=== PATIENT | male | born 1960 | race Caucasian/White ===

== ENCOUNTER 2020-11-23 23:41 | Inpatient (IN) | payer OTHER ==
[~2020-11-23] VITALS: Ht 190.5 cm; Wt 127.9 kg
--- NOTE | ~2020-11-23 | CON ---
[address] [address] CONSULTATION Name: FRANNY FORD Room: [place] [address] ADM IN M.R.#: [id number] Admission: 11/24/20 Attend Phys: Pedro Luis Christianson MD Discharge: Date of : 56 Report #: [id number] THIS REPORT FOR: cc: FAM - No family physician/PCP FAM - No family physician/PCP ~ Tashi Caba MD [facility] CARDIOLOGY CONSULTATION HISTORY OF PRESENT ILLNESS: I was asked by Dr. Christianson to see this 60-year-old white male in Cardiology consultation for evaluation and treatment of congestive heart failure. This man has a fairly long history of heart failure, he is not sure how long. He is not a particularly good historian. He does have insulin-dependent diabetes mellitus. His EKG does show probable old anterior infarct with right bundle-branch block and left axis deviation, left anterior fascicular block that is bifascicular block. He came in with increasing swelling of his legs and shortness of breath going on for a couple of weeks. I believe he is noncompliant with his medications. He normally follows at [facility], but he says he has moved on from [facility]. He was seen in the hospital downtown, but saw physicians at [facility] for followup. This man does have mild chronic renal failure. His creatinine today was 2.5. He does have cellulitis of both lower extremities as well. HOME MEDICATIONS: Include albuterol 2 puffs q. 4-6 hours p.r.n., carvedilol 6.25 mg b.i.d., furosemide 80 mg b.i.d., docusate 800 mg b.i.d., hydralazine 25 mg t.i.d., isosorbide mononitrate or Imdur 30 mg daily, tamsulosin 0.4 mg daily, melatonin 3 mg extended release at bedtime, and Lantus insulin 20 units daily at bedtime. He has not been having any chest pains. He did have an ultrasound of his legs, which did not show DVT, but he does have evidence of cellulitis with redness of both legs. PAST MEDICAL HISTORY: As described above. ALLERGIES: ALLERGIC TO DIAZEPAM AND CODEINE. REVIEW OF SYSTEMS: Unremarkable except as described above. His review of systems is negative for some 35 different complaints in 14 different system categories. Please see review of system form for details and negatives in review of systems. SOCIAL HISTORY: He is not . He does have a history of smoking. He does have a past history of drinking. FAMILY HISTORY: He was positive for amphetamines on his urine drug screen at this time. He does have what appeared to be possible needle tracks on both arms. He was not positive for opiates, [place] [address] CONSULTATION Name: LILIANAFRANNY Room: [address] IN M.R.#: [id number] Admission: 11/24/20 Attend Phys: Pedro Luis Christianson MD Discharge: Date of : 56 Report #: [id number] FAMILY HISTORY: Noncontributory. PHYSICAL EXAMINATION: GENERAL: He presents as a well-developed, well-nourished white male in no acute distress. VITAL SIGNS: His pulse was 105, respirations were 22 and regular, temperature is 36.5. His blood pressure is 120/80, O2 pulse ox was 91. HEENT: His head was atraumatic. Eyes clear. NECK: Supple. There was mild jugular venous distention. LUNGS: Showed decreased breath sounds diffusely, but there were crackles in both bases. HEART: Revealed normal first and second heart sound, a gallop was heard. Because he was mildly tachycardic, I could not tell if it was clearly an S3 or an S4 or summation gallop. It was probably a summation gallop. There was a 1/6 systolic murmur heard in the mitral area. There were no other murmurs, rubs, thrills, heaves or gallops. PMI is not displaced. ABDOMEN: Soft, flat, obese and nontender. There were no palpable masses, no organomegaly. EXTREMITIES: Reveal no cyanosis or clubbing. There was 2-3+ ankle and pedal edema. NEUROLOGIC: The patient mentated normally, talked normally, moved all extremities normally. His EKG is as described above. His chest x-ray showed marked cardiomegaly with mild bilateral interstitial pulmonary opacities that may reflect mild interstitial pulmonary edema. The radiologist said mild interstitial pneumonitis was also considered. His COVID status was negative, that is, the test was negative. His NT-proBNP was 16,648. One troponin was negative at less than 0.06. BUN was 41, creatinine was 2.5. Both his albumin and protein were low. Blood sugar is 176. IMPRESSION: 1. Congestive heart failure, likely acute on chronic systolic and diastolic heart failure. 2. Probable ischemic cardiomyopathy. 3. Insulin-dependent diabetes mellitus. 4. Medical noncompliance. 5. Amphetamine use. 6. Chronic renal failure. 7. Cellulitis, both lower extremities. 8. Probable old anterior myocardial infarction. [address] [place] [address] CONSULTATION Name: FRANNY FORD Room: [address] IN ..#: [id number] Admission: 11/24/20 Attend Phys: Pedro Luis Christianson MD Discharge: Date of : 56 Report #: [id number] RECOMMENDATION: I would keep him on his hydralazine, nitrates, and beta-rosemarie that is his Coreg. I would diurese him with Lasix. I would consider a small dose of Aldactone in this man like 25 mg daily. He should have a nuclear stress test and an echo. Thank you very much for asking me to see the patient. If there are any questions, please feel free to contact me. By: [id number]. Eric Caba MD, FACC /nt
[2020-11-24 00:09] VITALS: BP 119/78
[2020-11-24] MEDS ORDERED: HYDRALAZINE 2525 MG PO (00:18)
[2020-11-24] MEDS ORDERED: PROAIR HFA8.5 GM INH (00:18)
[2020-11-24] MEDS ORDERED: IMDUR 30 MG TAB30 M1 PO (00:24)
[2020-11-24] MEDS ORDERED: MELATONIN3 M1 PO (00:25)
[2020-11-24] MEDS ORDERED: COLACE100 MG PO (00:25)
[2020-11-24] MEDS ORDERED: FUROSEMIDE 40 M40 MG PO (00:26)
[2020-11-24] MEDS ORDERED: LANTUS SUBQ (00:26)
[2020-11-24] MEDS ORDERED: CARVEDILOL12.5 MG PO (00:26)
[2020-11-24] MEDS ORDERED: FLOMAX0.4 MG PO (00:27)
[2020-11-24 01:14] LABS: BE 1.3 mmol/L (-2 to +3); PCO2 39.1 mmHg (35.0-45.0); PO2 76.3 mmHg (75.0-100.0); pH 7.433 (7.340-7.450)
[2020-11-24 01:27] LABS: ABSOLUTE EOSINOPHILS 0.1 thou/uL (0.0-0.7); ABSOLUTE LYMPHOCYTES 0.6 thou/uL (0.8-5.3); ABSOLUTE MONOCYTES 0.4 thou/uL (0.0-1.2); BASOPHILS 0.8 %; EOSINOPHILS 1.9 %; HEMATOCRIT 37.6 % (42.0-52.0); LYMPHOCYTES 11.4 %; MCV 87.6 fL (80.0-100.0); MONOCYTES 8.3 %; NUCLEATED RBCS 0 /100WBC; PLATELET COUNT* 135 thou/uL (150-400); POLYS 77.6 %; RBC 4.29 mil/uL (4.50-6.00); RDW-CV 16.1 % (10.5-14.5); WBC 5.2 thou/uL (4.0-11.0)
[2020-11-24 01:39] LABS: APTT 27.9 Seconds (25.0-31.3); INR 1.1; PROTIME 11.3 Seconds (9.20-11.50)
[2020-11-24 01:40] LABS: CALCIUM 8.7 mg/dL (8.5-10.1); CREATININE 2.5 mg/dL (0.6-1.3); POTASSIUM 3.7 mmol/L (3.5-5.1)
[2020-11-24 01:52] LABS: ALBUMIN 2.8 g/dL (3.4-5.0); MAGNESIUM 2.3 mg/dL (1.8-2.4); TOTAL BILIRUBIN 0.4 mg/dL (<0.1-1.0); TOTAL PROTEIN 6.3 g/dL (6.4-8.2)
[2020-11-24 06:48] VITALS: BP 117/77
[2020-11-24 08:21] LABS: URINE BILIRUBIN NEGATIVE (Negative); URINE BLOOD NEGATIVE (Negative); URINE CLARITY CLEAR; URINE COLOR YELLOW; URINE GLUCOSE-RANDOM NEGATIVE (Negative); URINE KETONES NEGATIVE (Negative); URINE LEUKOCYTES-REFLEX NEGATIVE (Negative); URINE NITRITE-REFLEX NEGATIVE (Negative); URINE PROTEIN 1+ (Negative); URINE SPECIFIC GRAVITY 1.015 (1.005-1.030); URINE UROBILINOGEN 0.2 E.U./dl (0.2-1.0)
[2020-11-24 08:37] LABS: AMP/METHAMP POSITIVE (Negative); BARBITURATES Negative (Negative); BENZODIAZEPINES Negative (Negative); COCAINE Negative (Negative); METHADONE Negative (Negative); OPIATES Negative (Negative); PCP Negative (Negative); THC Negative (Negative)
[2020-11-24 10:30] VITALS: BP 114/75
--- NOTE | 2020-11-24 12:49 | EKG ---
[place] [address] ELECTROCARDIOGRAM REPORT Name: FRANNY OFRD Room: [place] [address] ADM IN [facility].#: [id number] Admission: 11/24/20 Attend Phys: Pedro Luis Christianson, Discharge: Date of : 56 Date of Service: 11/24/20 0120 Report #: [id number] THIS REPORT FOR: //name// [facility] ED Test Date: 2020-11-24 Test Time: 01:20:27 Pat Name: FRANNY FORD Department: Room: [facility] Gender: M Overlock Operator: GENE : 1960 Requested By: Antonietta Camacho Order Number: [id number] MD: Eric Caba Measurements Intervals [place] Rate: 103 P: -16 HI: 194 QRS: -66 QRSD: 148 T: 55 QT: 396 QTc: 519 Interpretive Statements Sinus tachycardia Atrial premature complex Right bundle branch block Anterior infarct, old No previous ECG available for comparison Left axis deviation, left anterior fascicular block, bifascicular block Electronically Signed On 11-24-2020 12:49:33 [employer] by Eric Caba [email or web address] <ELECTRONICALLY SIGNED> By: Tashi Caba MD, FAC 11/24/20 1249 012 012 Tashi Caba MD, [facility] /EPI
[2020-11-24 15:00] VITALS: BP 117/77
[2020-11-24 17:40] VITALS: BP 117/77
[2020-11-24 20:00] VITALS: BP 130/89
[2020-11-25 01:48] VITALS: BP 135/91
[2020-11-25 04:37] LABS: ABSOLUTE EOSINOPHILS 0.1 thou/uL (0.0-0.7); ABSOLUTE LYMPHOCYTES 0.7 thou/uL (0.8-5.3); ABSOLUTE MONOCYTES 0.5 thou/uL (0.0-1.2); ABSOLUTE NEUTROPHILS 3.7 thou/uL (1.6-8.1); BASOPHILS 0.6 %; HEMOGLOBIN 12.7 gm/dL (14.0-18.0); LYMPHOCYTES 14.2 %; MCH 28.5 pg (26.0-34.0); MCHC 32.5 g/dL (28.0-37.0); MCV 87.6 fL (80.0-100.0); MONOCYTES 9.1 %; MPV 9.9 fl. (7.2-11.1); NUCLEATED RBCS 0 /100WBC; PLATELET COUNT* 130 thou/uL (150-400); POLYS 74.1 %; RBC 4.44 mil/uL (4.50-6.00)
[2020-11-25 04:56] LABS: CALCIUM 9.3 mg/dL (8.5-10.1); CREATININE 2.6 mg/dL (0.6-1.3); MAGNESIUM 2.4 mg/dL (1.8-2.4); POTASSIUM 3.9 mmol/L (3.5-5.1)
[2020-11-25 05:02] VITALS: BP 129/82
[2020-11-25 08:04] VITALS: BP 122/81
--- NOTE | 2020-11-25 10:50 | NUR ---
PT NON COMPLIANT. DEMANDING FOOD AND DRINK. ON 1.5L FR. DR GUILLAUME AWARE. PT FED 2 BOX LUNCHES AND WATER CUP FILLED PER HIS REQUEST. DEON IN CARDIOLOGY NOTIFIED THAT PT HAS EATEN AND DRANK. PT CURSING AT STAFF.
[2020-11-25 12:03] VITALS: BP 130/82
--- NOTE | 2020-11-25 13:15 | NUR ---
Pt is A&O. Resides at home. Independent. No DME. No hx of HH or SNF. Pt to have stress test today. Cards and renal following. Pt on 2L o2, wean prior to dc. Positive for meth upon admission. Goal is home, hx of leaving hospitals AMA. Following.
--- NOTE | 2020-11-25 14:04 | 2DMMODE ---
[place] [address] 2 D/M-MODE ECHOCARDIOGRAM Name: FRANNY FORD Room: [address] IN [facility]#: [id number] Admission: 11/24/20 Attend Phys: Pedro Luis Christianson, Discharge: Date of : 56 Date of Service: 11/25/20 1404 Report #: [id number] THIS REPORT FOR: cc: FAM - No family physician/PCP FAM - No family physician/PCP Stepan Lowe MD [facility] ~ APPROVED REPORT Study performed: 11/25/2020 12:11:49 EXAM: Comprehensive 2D, Doppler, and color-flow Echocardiogram Patient Location: In-Patient Room #: [facility] Status: routine BSA: 2.56 HR: 108 bpm BP: 122/81 mmHg Rhythm: NSR Other Information Study Quality: Good Indications Abnormal ECG Congestive Heart Failure 2D Dimensions IVSd: 17.43 (7-11mm) LVOT Diam: 24.96 (18-24mm) LVDd: 65.76 mm PWd: 15.46 (7-11mm) Ascending Ao: 43.41 (22-36mm) LVDs: 59.67 (25-40mm) Aortic Root: 45.18 mm Volumes Left Atrial Volume (Systole) LA ESV Index: 52.10 mL/m2 Aortic Valve AoV Peak Leland.: 0.92 m/s AO Peak Gr.: 3.41 mmHg LVOT Max P.26 mmHg AO Mean Gr.: 2.18 mmHg LVOT Mean P.14 mmHg LVOT Max V: 0.75 m/s AO V2 VTI: 12.50 cm LVOT Mean V: 0.50 m/s ASHU (VTI): 3.90 cm2 LVOT V1 VTI: 9.95 [place] [address] 2 D/M-MODE ECHOCARDIOGRAM Name: FRANNY FORD Room: [address] IN [facility].#: [id number] Admission: 11/24/20 Attend Phys: Pedro Luis Christianson, Discharge: Date of : 56 Date of Service: 11/25/20 1404 Report #: [id number] Tricuspid Valve RAP Estimate: 15.00 mmHg TR Peak Gr.: 41.23 mmHg RVSP: 56.00 mmHg PA Pressure: 56.00 mmHg Left Ventricle Left ventricle is moderately dilated. There is global hypokinesis of the left ventricle. There is normal left ventricular wall thickness. Left ventricular systolic function is severely decreased. LVEF is 25%. This study is not technically sufficient to allow evaluation of the LV diastolic function. Right Ventricle The right ventricle is normal size. The right ventricular systolic function is normal. Atria Left atrium is moderately dilated. Right atrium is mildly dilated. Aortic Valve Mild aortic valve sclerosis. Trace to mild aortic regurgitation. There is no aortic valvular stenosis. Mitral Valve The mitral valve is normal in structure. Mild mitral regurgitation. No evidence of mitral valve stenosis. Tricuspid Valve The tricuspid valve is normal in structure. Mild tricuspid regurgitation. Moderate pulmonary hypertension. Pulmonic Valve The pulmonary valve is normal in structure. There is no pulmonic valvular regurgitation. Great Vessels The aortic root is normal in size. IVC is dilated and collapses <50% with inspiration. Pericardium Mild pericardial effusion. <Conclusion> Left [place] [address] 2 D/M-MODE ECHOCARDIOGRAM Name: LILIANAFRANNY Room: [address] IN .R.#: [id number] Admission: 11/24/20 Attend Phys: Pedro Luis Christianson, Discharge: Date of : 56 Date of Service: 11/25/20 1404 Report #: [id number] Left ventricular systolic function is severely decreased LVEF is 25%. Left atrium is moderately dilated. Right atrium is mildly dilated. Mild aortic valve sclerosis. Trace to mild aortic regurgitation. There is no aortic valvular stenosis. The mitral valve is normal in structure. Mild mitral regurgitation. The tricuspid valve is normal in structure. Mild tricuspid regurgitation. Moderate pulmonary hypertension. IVC is dilated and collapses <50% with inspiration. Mild pericardial effusion. There is global hypokinesis of the left ventricle. <ELECTRONICALLY SIGNED> By: Stepan Lowe MD, FACC 11/25/20 1404 03 03 Stepan Lowe MD, FACC /INF
--- NOTE | 2020-11-25 16:38 | NUR ---
PT NON COMPLIANT WITH TREAMENT. DEMANDS WATER [facility] EDUCATED ABOUT FLUID RESTRICTION. CONTINUES TO CURSE AT STAFF. UP AD ELIAZAR WITH STEADY GAIT. LI TO DD. IV LASIX INFUSING. HAD STRESS TEST TODAY.
[2020-11-25 16:42] VITALS: BP 121/81
[2020-11-25 20:00] VITALS: BP 143/87
[2020-11-26 06:32] LABS: ABSOLUTE BASOPHILS 0.1 thou/uL (0.0-0.2); ABSOLUTE EOSINOPHILS 0.1 thou/uL (0.0-0.7); ABSOLUTE LYMPHOCYTES 0.7 thou/uL (0.8-5.3); ABSOLUTE MONOCYTES 0.4 thou/uL (0.0-1.2); ABSOLUTE NEUTROPHILS 4.4 thou/uL (1.6-8.1); EOSINOPHILS 2.4 %; HEMATOCRIT 39.4 % (42.0-52.0); HEMOGLOBIN 12.6 gm/dL (14.0-18.0); LYMPHOCYTES 12.6 %; MCHC 31.9 g/dL (28.0-37.0); MCV 87.9 fL (80.0-100.0); MONOCYTES 7.2 %; MPV 8.9 fl. (7.2-11.1); NUCLEATED RBCS 0 /100WBC; PLATELET COUNT* 140 thou/uL (150-400); POLYS 76.8 %; RBC 4.48 mil/uL (4.50-6.00); RDW-CV 15.9 % (10.5-14.5); WBC 5.8 thou/uL (4.0-11.0)
--- NOTE | 2020-11-26 06:35 | NUR ---
PT CONTINUES TO REFUSE FLUID RESTRICTION. ATTEMPTED TO EDUCATE PT ON THE IMPORTANCE OF MAINTAINING THE ORDER, PT BECAME UPSET AND DEMANDED WATER. THIS AM PT CALLED ME INTO HIS ROOM AND WAS ASKING WHY THIS IS NOT WORKING AND BECAME UPSET. I ATTEMPTED TO EDUCATE HIM ON THE FACT THAT HIS INTAKE IS TOO HIGH AND HE HAS TO LIMIT HIS FLUIDS TO ALLOW THE LASIX TO WORK AND PULL FLIUD OFF. HE SAID "WELL NO ONE HAS TOLD ME THAT", I THEN IN INFORMED HIM THAT I MYSELF HAD THAT DISCUSSION WITH HIM THE NIGHT PRIOR. HE THEN BECAME UPSET AND SAID "I HAVE NEVER HAD TO LIMIT MY WATER, I DRINK OVER A GALLON A DAY". PT THEN JUST BECAME AGGITATED AND CANTANKEROUS.
[2020-11-26 07:08] LABS: ALBUMIN 2.7 g/dL (3.4-5.0); CALCIUM 8.9 mg/dL (8.5-10.1); CREATININE 2.5 mg/dL (0.6-1.3); MAGNESIUM 2.2 mg/dL (1.8-2.4); POTASSIUM 4.1 mmol/L (3.5-5.1); TOTAL BILIRUBIN 0.4 mg/dL (<0.1-1.0); TOTAL PROTEIN 6.5 g/dL (6.4-8.2)
[2020-11-26 08:00] VITALS: BP 128/84
[2020-11-26 12:07] VITALS: BP 111/86
--- NOTE | 2020-11-26 14:19 | NUR ---
Pt has decided to leave AMA.
--- NOTE | 2020-11-26 15:19 | CARDNUC ---
[place] [address] CARDIAC NUCLEAR IMAGING REPORT Name: FRANNY FORD Room: [address] IN [facility]#: [id number] Admission: 11/24/20 Attend Phys: Pedro Luis Christianson, Discharge: 11/26/20 Date of : 56 Date of Service: 11/26/20 1519 Report #: [id number] THIS REPORT FOR: cc: FAM - No family physician/PCP FAM - No family physician/PCP Migel Espinoza MD [facility] ~ APPROVED REPORT Imaging Protocol: Stress Tc-99mm Only Study performed: 11/25/2020 07:50:00 Indication: Chest pain, dyspnea, CHF exacerbation. Patient Location: In-Patient Room #: 212 Stress Tech: Estela Villa Stress Nurse: Carmenza Rosen RN Ht: 6 ft 3 in Wt: 282 lbs BSA: 2.54 m2 BMI: 35.24 Medical History Medical History: Chest pain, Dyspnea, cellulitis/LE edema/abdominal edema, lungs diminished, CHF exacerbation, Chronic Renal Failure, increased creatinine, DM II, slight troponin increase, brain fog, forgetful, obesity, spears catheter, O2 2L NC, positive drug test, HTN, increased creatinine. non-compliance history, obesity. Medications: Lasix, Carvedilol, Imdur, Hydralazine. Allergies: Diazepam, Codeine. Cardiac Risk Factors: Age, DM, FHX of CAD, SOB, Past Smoker, CHF exacerbation, slight increase in troponin, obesity, non-compliance history. Previous Cardiac Procedures: None Pretest Chest Pain Characteristics: No chest pain Exercise History: Sedentary Physical Disabilities: Weakness, LE edema/celluliltis, O2 2L NC, spears catheter. Meds Held (24 hrs): Carvedilol, Imdur. Pharmacologic Stress Pharmacologic stress test was performed by injecting Regadenoson 0.4 mg IV push over 10-15 seconds immediately followed by the intravenous injection of 30.3 mCi of Tc-99m Sestamibi. Time of stress injection: 14:15 Date: 11/25/2020 Administration Route: [place] [address] CARDIAC NUCLEAR IMAGING REPORT Name: LILIANAFRANNYCECI OSWALD Room: [address]#: [id number] Admission: 11/24/20 Attend Phys: Pedro Luis Christianson, Discharge: 11/26/20 Date of : 56 Date of Service: 11/26/20 1519 Report #: [id number] Administration Site: Left Arm Heart Rate at time of stress injection: 119 bpm. Gated Stress SPECT was performed 45 minutes after stress injection. The images were gated to evaluate regional wall motion and calculate left ventricular ejection fraction. Stress Test Details Stress Test: Pharmacologic stress testing performed using 0.4 mg of regadenoson per 5 mL given IV over 10 seconds. Reason for pharmacologic stress test: Weakness, LE edema/celluliltis, O2 2L NC, spears catheter.. HR Max Heart Rate (APMHR): 158 bpm Resting HR: 109 bpm Target HR (85% APMHR): 134 bpm Max HR Achieved: 119 bpm % of APMHR: 75 Recovery HR: 106 bpm BP Resting BP: 118/80 mmHg Max BP: 129/70 mmHg Recovery BP: 125/69 mmHg ECG Resting ECG: Sinus tachycardia with left anterior fascicular and right bundle branch block. Stress ECG: Sinus tachycardia with left anterior fascicular and right bundle branch block. ST Change: None Arrhythmia: VPC's Recovery ECG: Sinus tachycardia with left anterior fascicular and right bundle branch block. Recovery ST Change: None Recovery Arrhythmia: VPC's Clinical Reason for Termination: Completed protocol Stress Symptoms: Increased dyspnea, 1/10 chest pain, patient stated feels like heart exploding. Exercise duration: 00 min 00 sec Exercise capacity: 1.00 METs The patient tolerated Lexiscan infusion without significant cardiac symptoms. Nurse Comments A 60 year old male inpatient presented for a sitting Lexiscan r/[place] [address] CARDIAC NUCLEAR IMAGING REPORT Name: FRANNY FORD Room: [address]#: [id number] Admission: 11/24/20 Attend Phys: Pedro uLis Christianson, Discharge: 11/26/20 Date of : 56 Date of Service: 11/26/20 1519 Report #: [id number] exacerbation, edema/cellulitis, dyspnea, chest pain. Test tolerated well on 2L O2 NC. Recovery unremarkable. Patient stated he felt better and was stable when escorted via wheelchair to Nuclear Medicine for imaging. Stress ECG Conclusion The baseline twelve-lead EKG shows sinus tachycardia with right bundle and left anterior fascicular block. EKGs obtained during and post Lexiscan infusion show sinus tachycardia with no significant ST segment changes when compared to baseline. There were unifocal premature ventricular contractions noted. Study Quality Study: Good Artifact: Mild Apical thinning Study Data Post stress, the left ventricular ejection was 20%.. Perfusion Resting images were not obtained. The stress images show a focal region of photopenia in the apex likely due to apical thinning artifact. No other significant fixed or reversible defects were identified. Wall Motion There is severe global hypokinesis without obvious focal wall motion abnormality. The left ventricle appears dilated. Nuclear Conclusion ECG Findings: negative for ischemia Clinical Findings: negative for ischemia Nuclear Findings: negative for ischemia Exercise Capacity: not assessed Left Ventricular Function: abnormal Risk Study: high Perfusion images show photopenia of the apex which is likely due to apical thinning artifact although resting images are not available for comparison. No other significant defects were identified that would suggest infarct or ischemia. Global LV systolic function is severely decreased without obvious focal wall motion abnormality. This is a high risk study based on severe LV systolic dysfunction. Findings consistent with a nonischemic cardiomyopathy. <Conclusion> [address] [address] CARDIAC NUCLEAR IMAGING REPORT Name: FRANNY FORD Room: [address] IN M.R.#: [id number] Admission: 11/24/20 Attend Phys: Pedro Luis Christianson, Discharge: 11/26/20 Date of : 56 Date of Service: 11/26/201518 Report #: [id number] The baseline twelve-lead EKG shows sinus tachycardia with right bundle and left anterior fascicular block. EKGs obtained during and post Lexiscan infusion show sinus tachycardia with no significant ST segment changes when compared to baseline. There were unifocal premature ventricular contractions noted. <ELECTRONICALLY SIGNED> By: Migel Espinoza MD, FACC 11/26/201518 18 18 Migel Espinoza MD, FACC /INF
--- NOTE | 2020-11-26 18:00 | NUR ---
ASSUMED PT CARE AT 0730, PT AOX4 BUT FORGETFUL AND AGITATED, STATES HE DOESN'T UNDERSTAND WHY HE'S STILL EDEMATOUS SINCE HE'S ON A LASIX DRIP, EDUCATED PT ON FLUID RESTRICTION AND IMPORTANCE OF BEING COMPLIANT, PT STILL VERBALIZES NOT UNDERSTANDING. PT ENDED UP AGREEING TO COMPLY W/ FLUID RESTRICTION LATER IN THE MORNING AND DID WELL BUT STILL AGITATED. THIS AFTERNOON, PT DECIDED HE NO LONGER WANTED TO COMPLY AND WANTED HIS LI OUT SO HE COULD LEAVE AMA. I TOLD PT I HAD TO GO GET A FLUSH, COTTONBALL AND AMA PAPERWORK AND WOULD BE BACK, UPON COMING BACK INTO ROOM PT REFUSED TO LET ME TAKE LI AND IV OUT, HOUSE [employer] AND SECURITY CALLED AND BROUGHT UP TO ROOM TO HELP, [facility] ENDED UP HAVING TO BE CALLED AND AT THIS TIME, BEFORE POLICE SHOWED UP, PT AGREED TO LETTING ME TAKE LI AND IV OUT, BOTH TAKEN OUT AT THIS TIME AND PT LEFT AMA AT APPROX 1420. BUT WITHOUT SIGNING PAPERWORK BECAUSE HE REFUSED TO SIGN ANYTHING
--- NOTE | 2020-11-28 08:34 | CON ---
[address] [address] CONSULTATION Name: FRANNY FORD Room: [address] IN M.R.#: [id number] Admission: 11/24/20 Attend Phys: Pedro Luis Christianson MD Discharge: 11/26/20 Date of : 56 Report #: [id number] THIS REPORT FOR: cc: MICHELLE - [facility] family physician/PCP FAM - No family physician/PCP ~ Komal Rodriguez MD DATE OF SERVICE: 11/24/2020 NEPHROLOGY CONSULTATION CONSULTING PHYSICIAN: Antonietta Camacho MD REASON FOR ADMISSION: Shortness of breath. REASON FOR NEPHROLOGY CONSULTATION: Elevated creatinine. HISTORY OF PRESENT ILLNESS: This is a 60-year-old male who states that he has history of congestive heart failure, has diabetes, hypertension, came in with worsening lower extremity edema, erythema of bilateral lower extremities as well as increasing shortness of breath. His chest x-ray shows evidence of vascular congestion. Lower extremities are extremely swollen. When I tried to ask him if he has been watching his fluid intake and salt intake, he really could not give me a clear answer, says he has had a mental fog these days and he was losing his appetite, so he has been trying to eat whatever he can eat even if it has a lot of salt in it. He also has issues with BPH and is on Flomax and straight catheterizes himself. He normally goes to [facility] for his care, but is not happy with the care there anymore. He has been urinating over here, but is asking for Granados catheter. Creatinine is 2.5 here and we do not have any other baseline creatinine. The patient does tell me that he does have history of kidney insufficiency. ALLERGIES: DIAZEPAM AND CODEINE. REVIEW OF SYSTEMS: As mentioned in history of present illness, otherwise 10-point review of systems is negative. PAST MEDICAL AND SURGICAL HISTORY: Includes congestive heart failure, ejection fraction is not known; diabetes; hypertension; hernia surgery; chronic kidney disease and his baseline creatinine is not known. HOME MEDICATIONS: Include albuterol, hydralazine, Imdur, melatonin, docusate, carvedilol, furosemide 80 mg twice a day, insulin glargine and tamsulosin. FAMILY HISTORY: Reviewed [place] [address] CONSULTATION Name: LILIANAFRANNY OSWALD Room: [address] IN [facility].#: [id number] Admission: 11/24/20 Attend Phys: Pedro Luis Christianson MD Discharge: 11/26/20 Date of : 56 Report #: [id number] SOCIAL HISTORY: Denies any alcohol use, recreational drug use and smoking history not known. PHYSICAL EXAMINATION: VITAL SIGNS: Blood pressure 117/77, temperature 36.7, respiratory rate is 16, pulse rate is 92, pulse ox 96% on room air. GENERAL: He is awake, alert, oriented x 3. HEAD AND EYES: Atraumatic and normocephalic. Conjunctivae normal. EARS, NOSE, AND THROAT: Normal ears and nose. Mucous membranes are moist. CHEST: Bilateral diminished breath sounds posteriorly. CARDIOVASCULAR: S1, S2 normal. No murmurs. ABDOMEN: Soft, nondistended, nontender. EXTREMITIES: Lower extremities, there is at least 3+ edema bilateral lower extremities with erythema of bilateral lower extremities. NEUROLOGICAL FUNCTION: Grossly intact. PSYCHIATRIC: Mood and affect seems to be normal. LABORATORY DATA: Hemoglobin is 12.0. Sodium is 142, potassium is 3.7, BUN is 41, creatinine is 2.5. Troponin was 0.06. Other labs are reviewed. IMAGING: Chest x-ray and venous Doppler study were reviewed. ASSESSMENT: 1. Acute kidney injury versus chronic kidney disease and his baseline creatinine is not known. The patient presents with a creatinine of 2.5. He does look fluid overloaded, so he could be having some element of renal venous congestion. Renal ultrasound and UA needs to be checked. He also has a history of a straight catheterization about 6-7 times a day. I will be requesting a Granados catheter for now while we are diuresing him. 2. Congestive heart failure, ejection fraction is not known. It will be helpful to get his prior echo records and Cardiology also has been consulted over here. 3. Noncompliant with diet and low sodium intake. 4. Cellulitis of bilateral lower extremities. Antibiotics as per primary team. He has received one dose of ceftriaxone in the ER. 5. Hypertension. Blood pressure seems to be controlled. PLAN: 1. The patient states that he does have a history of renal insufficiency. Please try to obtain his baseline creatinine for at least last 3 readings from [facility]. 2. Please maintain strict I's and O's on him and insert a Granados catheter for now. [address] [address] CONSULTATION Name: FRANNY FORD Room: [address] IN M.R.#: [id number] Admission: 11/24/20 Attend Phys: Pedro Luis Christianson MD Discharge: 11/26/20 Date of : 56 Report #: [id number] 3. Lasix drip at 7.5 mg an hour ordered, 2 g sodium diet with 1.5 liters a day of fluid restriction, daily weights. 4. Check a UA and renal ultrasound also ordered. 5. Antibiotics for lower extremity cellulitis as per primary team. It will be helpful to get his previous echocardiogram reports. Thank you for this consultation. We will continue to follow with you. Discussed with the patient and nurse. <ELECTRONICALLY SIGNED> By: Komal Rodriguez MD 11/28/20 [id number] Rodriguez MD /nt
== END 2020-11-26 14:20 | disposition left against medical advice (07) | DRG 291 ==
LOC: M.ERS 23:41 → M.2W 11-24 02:50 → M.TBA-ER 11-24 02:50 → M.2W 11-24 19:05
PROVIDERS: Internal Medicine; Personal Emergency Response Attendant; ADMIT Internal Medicine; ATTEND Internal Medicine
DX: I13.0 Hypertensive heart and chronic kidney disease with heart failure and stage 1 through stage 4 chronic kidney disease, or unspecified chronic kidney disease (principal); I50.23 Acute on chronic systolic (congestive) heart failure; N17.0 Acute kidney failure with tubular necrosis; L03.116 Cellulitis of left lower limb; L03.115 Cellulitis of right lower limb; F15.90 Other stimulant use, unspecified, uncomplicated; Z20.822 Contact with and (suspected) exposure to COVID-19; Z53.29 Procedure and treatment not carried out because of patient's decision for other reasons; E11.22 Type 2 diabetes mellitus with diabetic chronic kidney disease; N18.9 Chronic kidney disease, unspecified; Z28.21 Immunization not carried out because of patient refusal; Z79.899 Other long term (current) drug therapy; Z79.4 Long term (current) use of insulin; Z88.8 Allergy status to other drugs, medicaments and biological substances

== ENCOUNTER 2021-04-10 17:34 | Inpatient (IN) | payer OTHER ==
[~2021-04-10] VITALS: Ht 190.5 cm; Wt 141.4 kg
[~2021-04-10 17:34] MED LIST: CARVEDILOL12.5 MG PO; COLACE100 MG PO; FLOMAX0.4 MG PO; FUROSEMIDE 40 M40 MG PO; HYDRALAZINE 2525 MG PO; IMDUR 30 MG TAB30 M1 PO; LANTUS SUBQ; MELATONIN3 M1 PO; PROAIR HFA8.5 GM INH
[2021-04-10 17:45] VITALS: BP 110/78
[2021-04-10 18:36] LABS: BE -3.9 mmol/L (-2 to +3); PCO2 37.9 mmHg (35.0-45.0); PO2 68.4 mmHg (75.0-100.0); pH 7.362 (7.340-7.450)
[2021-04-10 18:42] LABS: ABSOLUTE EOSINOPHILS 0.1 thou/uL (0.0-0.7); ABSOLUTE LYMPHOCYTES 0.5 thou/uL (0.8-5.3); ABSOLUTE MONOCYTES 0.7 thou/uL (0.0-1.2); ABSOLUTE NEUTROPHILS 6.2 thou/uL (1.6-8.1); BASOPHILS 0.4 %; EOSINOPHILS 1.6 %; HEMATOCRIT 42.8 % (42.0-52.0); HEMOGLOBIN 13.5 gm/dL (14.0-18.0); LYMPHOCYTES 6.2 %; MCH 26.4 pg (26.0-34.0); MCHC 31.6 g/dL (28.0-37.0); MCV 83.6 fL (80.0-100.0); MONOCYTES 8.7 %; MPV 9.4 fl. (7.2-11.1); NUCLEATED RBCS 0 /100WBC; PLATELET COUNT* 124 thou/uL (150-400); POLYS 83.1 %; RBC 5.12 mil/uL (4.50-6.00); RDW-CV 18.9 % (10.5-14.5); WBC 7.5 thou/uL (4.0-11.0)
[2021-04-10 18:54] LABS: CALCIUM 9.1 mg/dL (8.5-10.1); CREATININE 2.8 mg/dL (0.6-1.3); POTASSIUM 4.4 mmol/L (3.5-5.1)
[2021-04-10 19:04] LABS: ALBUMIN 2.9 g/dL (3.4-5.0); TOTAL PROTEIN 6.8 g/dL (6.4-8.2)
[2021-04-10 20:45] VITALS: BP 109/72
[2021-04-10 21:00] VITALS: BP 116/84
[2021-04-10] MEDS ORDERED: COREG6.25 MG PO (22:15)
[2021-04-10] MEDS ORDERED: LASIX 80 MG TAB80 MG PO (22:15)
[2021-04-10 23:52] VITALS: BP 109/84
[2021-04-11 02:51] LABS: URINE BILIRUBIN NEGATIVE (Negative); URINE BLOOD 3+ (Negative); URINE COLOR YELLOW; URINE GLUCOSE-RANDOM NEGATIVE (Negative); URINE KETONES NEGATIVE (Negative); URINE LEUKOCYTES-REFLEX 2+ (Negative); URINE NITRITE-REFLEX NEGATIVE (Negative); URINE PROTEIN 2+ (Negative); URINE SPECIFIC GRAVITY >= 1.030 (1.005-1.030); URINE UROBILINOGEN 0.2 E.U./dl (0.2-1.0)
[2021-04-11 02:52] LABS: URINE CLARITY CLOUDY
[2021-04-11 02:56] LABS: BACTERIA-REFLEX >30 Many /HPF (None Seen); COARSE GRANULAR CASTS 0-3 Few /LPF (None Seen); CRYSTALS None Seen /LPF (None Seen); FINE GRANULAR CASTS 0-3 Few /LPF (None Seen); MUCUS 4-6 Moderate strn/LPF (None Seen); RENAL EPITHELIAL CELLS 0-3 Few /LPF (None Seen); SQUAMOUS 0-3 Few /LPF (0-3); URINE RBC >20 Many /HPF (0-2); URINE WBC-REFLEX >25 Many /HPF (0-5); WBC CLUMPS Moderate (None Seen)
[2021-04-11 03:07] LABS: AMP/METHAMP POSITIVE (Negative); BARBITURATES Negative (Negative); BENZODIAZEPINES Negative (Negative); COCAINE Negative (Negative); METHADONE Negative (Negative); OPIATES Negative (Negative); PCP Negative (Negative); THC Negative (Negative)
[2021-04-11 04:00] VITALS: BP 132/78
[2021-04-11 07:40] VITALS: BP 117/87
--- NOTE | 2021-04-11 11:29 | EKG ---
[place] [address] ELECTROCARDIOGRAM REPORT Name: FRANNY FORD Room: [address] ADM IN .R.#: [id number] Admission: 04/10/21 Attend Phys: Pedro Luis Christianson, Discharge: Date of : 56 Date of Service: 04/10/21 1748 Report #: [id number] THIS REPORT FOR: //name// [facility] ED Test Date: 2021-04-10 Test Time: 17:48:10 Pat Name: FRANNY FORD Department: Room: [facility] Gender: M Reconditioner: DOMINIC : 1960 Requested By: David Richardson Order Number: [id number] MD: Stepan Lowe Measurements Intervals [place] Rate: 113 P: -32 NV: 132 QRS: 239 QRSD: 105 T: 242 QT: 390 QTc: 535 Interpretive Statements Sinus tachycardia Probable anterolateral infarct, age indeterm Probable inferior scar Minor IVCD of the right type Prolonged QT interval Compared to ECG 11/24/2020 01:20:27 Prolonged QT interval now present Atrial premature complex(es) no longer present Right bundle-branch block no longer present Myocardial infarct finding still present Electronically Signed On 04-11-2021 11:29:20 CDT by Stepan oLwe [email or web address] <ELECTRONICALLY SIGNED> By: Stepan Lowe MD, [facility] 04/11/21 1129 [id number] 1748 Stepan Lowe MD, [facility] /EPI
[2021-04-11 11:56] VITALS: BP 97/76
[2021-04-11 16:00] VITALS: BP 110/73
[2021-04-11 20:00] VITALS: BP 85/52
== END 2021-04-11 21:16 | DRG 871 ==
LOC: M.ERS 17:34 → M.TBA-ER 19:54 → M.2W 19:54
PROVIDERS: Emergency Medicine Emergency Medical Services; ADMIT Internal Medicine; ATTEND Internal Medicine
DX: A41.9 Sepsis, unspecified organism (principal); I50.43 Acute on chronic combined systolic (congestive) and diastolic (congestive) heart failure; N17.0 Acute kidney failure with tubular necrosis; J96.01 Acute respiratory failure with hypoxia; I13.0 Hypertensive heart and chronic kidney disease with heart failure and stage 1 through stage 4 chronic kidney disease, or unspecified chronic kidney disease; N18.4 Chronic kidney disease, stage 4 (severe); F19.10 Other psychoactive substance abuse, uncomplicated; E11.22 Type 2 diabetes mellitus with diabetic chronic kidney disease; R31.0 Gross hematuria; Z20.822 Contact with and (suspected) exposure to COVID-19; Z88.6 Allergy status to analgesic agent; Z88.8 Allergy status to other drugs, medicaments and biological substances; Z91.14 Patient's other noncompliance with medication regimen; Z79.899 Other long term (current) drug therapy